=== PATIENT | male | born 1990 | race Caucasian/White ===

== ENCOUNTER 2018-05-19 14:52 | Emergency (ER) | payer SELFPAY ==
[~2018-05-19] VITALS: Ht 185.4 cm; Wt 86.2 kg
--- NOTE | 2018-05-19 15:20 | NUR ---
pt bib from home came in due to etoh, on room air and tolerated well. Alert and oriented x 4, verbally responsive. breathing evenly and unlabored. kept comfortable. Will continue to monitor accordingly.
[2018-05-19 15:40] VITALS: BP 162/111
--- NOTE | 2018-05-19 16:05 | NUR ---
PT NOT AT BEDSIDE, ELOPED
== END 2018-05-19 16:07 | disposition left against medical advice (07) ==
LOC: ER 14:54
DX: F10.10 Alcohol abuse, uncomplicated (principal); Y90.9 Presence of alcohol in blood, level not specified; Z53.21 Procedure and treatment not carried out due to patient leaving prior to being seen by health care provider
CPT/HCPCS: A4606; Z7610